=== PATIENT | male | born 1980 | race Two or more races ===

== ENCOUNTER 2021-02-04 19:37 | Emergency (ER) | payer MEDICAID, OTHER ==
[~2021-02-04] VITALS: Ht 172.7 cm; Wt 86.3 kg
[2021-02-04 19:39] VITALS: BP 102/41
[2021-02-04] MEDS ORDERED: PLEASE ENTER ALLERGIES MC SCH (20:00)
[2021-02-04] MEDS ORDERED: CYCLOBENZAPRINE 10 MG TABLET ONE (20:13)
[2021-02-04] MEDS ORDERED: CYCLOBENZAPRINE 10 MG TABLET PO ONE (20:15)
== END 2021-02-04 21:00 | disposition home or self-care (01) ==
LOC: ED 20:33
DX: M62.838 Other muscle spasm (principal); M54.2 Cervicalgia
CPT/HCPCS: 99283